=== PATIENT | male | born 1960 | race Caucasian/White ===

== ENCOUNTER 2019-01-25 23:46 | Emergency (ER) | payer SELFPAY ==
[2019-01-26 00:13] LABS: Hemoglobin 15.5 g/dL (14.0-18.0); Mean Corpuscular HGB CONC 33.1 g/dL (32.0-36.0); Mean Corpuscular Hemoglobin 29.5 pg (27.0-31.0); Mean Corpuscular Volume 89.1 fL (78.0-98.0); RBC Distribution Width 13.8 % (11.5-14.5); Red Blood Cell (RBC) Count 5.27 mill/uL (4.70-6.10); White Blood Cell (WBC) Count 8.2 thou/uL (4.8-10.8)
[2019-01-26 00:29] LABS: ALT (SGPT) 21 U/L (8-55); AST (SGOT) 22 U/L (5-34); Albumin 3.7 g/dL (3.5-5.0); Alkaline Phosphatase 154 U/L (40-150); Anion Gap 11 mmol/L (10-20); BUN (Urea Nitrogen) 11 mg/dL (8.4-25.7); Bilirubin, Total 0.6 mg/dL (0.2-1.2); Calc. Creatinine Clearance 0 mL/min (70-130); Calcium 9.3 mg/dL (7.8-10.44); Carbon Dioxide 29 mmol/L (22-29); Chloride 103 mmol/L (98-107); Estimated GFR-MDRD 66; Globulin 3.7 g/dL (2.4-3.5); Glucose 164 mg/dL (70-105); Potassium 4.2 mmol/L (3.5-5.1); Protein, Total 7.4 g/dL (6.0-8.3); Sodium 139 mmol/L (136-145)
[2019-01-26 00:30] LABS: #Eosinphils 0.2 thou/uL (0.0-0.7); #Lymphocytes 1.7 thou/uL (1.20-3.40); #Monocytes 0.7 thou/uL (0.11-0.59); #Neutrophils 5.7 thou/uL (1.40-6.50); %Basophils 0.3 % (0.0-1.0); %Eosinophils 2.4 % (0.0-10.0); %Lymphocytes 20.2 % (21.0-51.0); %Monocytes 8.1 % (0.0-10.0); Mean Platelet Volume 10.8 fL (7.4-10.4); Platelet Count 99 thou/uL (130-400)
--- NOTE | 2019-01-26 08:47 | RAD ---
FRONTAL VIEW CHEST: INDICATION: Pain. Hypertension. FINDINGS: There is no lobar consolidation, effusion, or pneumothorax. Cardiac silhouette is normal in size for the portable technique. IMPRESSION: No focal consolidation. POS: [facility]
== END 2019-01-26 01:20 | disposition home or self-care (01) ==
LOC: ERS 23:46
DX: I10 Essential (primary) hypertension (principal)
CPT/HCPCS: 36415; 71045; 80053; 84484; 85025; 93005

== ENCOUNTER 2019-07-04 11:46 | Emergency (ER) | payer SELFPAY ==
[2019-07-04 13:01] LABS: ALT (SGPT) 41 U/L (8-55); AST (SGOT) 45 U/L (5-34); Albumin 3.8 g/dL (3.5-5.0); Alkaline Phosphatase 83 U/L (40-110); Anion Gap 12 mmol/L (10-20); BUN (Urea Nitrogen) 15 mg/dL (8.4-25.7); Bilirubin, Total 2.7 mg/dL (0.2-1.2); Calc. Creatinine Clearance 0 mL/min (70-130); Calcium 9.1 mg/dL (7.8-10.44); Carbon Dioxide 30 mmol/L (22-29); Chloride 100 mmol/L (98-107); Estimated GFR-MDRD 56; Globulin 3.8 g/dL (2.4-3.5); Glucose 130 mg/dL (70-105); Potassium 3.5 mmol/L (3.5-5.1); Protein, Total 7.6 g/dL (6.0-8.3); Sodium 138 mmol/L (136-145)
[2019-07-04] MEDS ORDERED: Lorazepam 1 MG TAB ONE ×2 (13:15→23:22)
[2019-07-04 13:40] LABS: #Eosinphils 0.1 thou/uL (0.0-0.7); #Monocytes 0.6 thou/uL (0.11-0.59); #Neutrophils 4.6 thou/uL (1.40-6.50); %Basophils 0.7 % (0.0-1.0); %Eosinophils 2.3 % (0.0-10.0); %Lymphocytes 16.2 % (21.0-51.0); %Monocytes 9.1 % (0.0-10.0); %Neutrophils 71.7 % (42.0-75.0); Hemoglobin 14.1 g/dL (14.0-18.0); Mean Corpuscular HGB CONC 33.9 g/dL (32.0-36.0); Mean Corpuscular Hemoglobin 30.5 pg (27.0-31.0); Mean Corpuscular Volume 89.8 fL (78.0-98.0); Mean Platelet Volume 10.6 fL (7.4-10.4); Platelet Count 86 thou/uL (130-400); RBC Distribution Width 13.5 % (11.5-14.5); Red Blood Cell (RBC) Count 4.63 mill/uL (4.70-6.10); White Blood Cell (WBC) Count 6.4 thou/uL (4.8-10.8)
[2019-07-04 13:59] LABS: Acetaminophen Less than 6.0 mcg/mL (10.0-30.0); Alcohol Less than 10 mg/dL (Less than 10); CK (CPK) 304 U/L (30-200); Salicylate Less than 8.0 mg/dL (15.0-30.0)
[2019-07-04 15:59] LABS: Amphetamine Detected (NotDetected); Barbiturates Screen Not Detected (NotDetected); Benzodiazepine Screen Not Detected (NotDetected); Cocaine Metabolite Screen Not Detected (NotDetected); Medtox Control Line Valid? VALID (VALID); Medtox Reader # READER 4; Methadone Not Detected (NotDetected); Methamphetamine Detected (NotDetected); Opiate Screen Not Detected (NotDetected); Oxycodone Screen Not Detected (NotDetected); Phencyclidine (PCP) Not Detected (NotDetected); THC/Cannabinoid Screen Not Detected (NotDetected); Tricyclic Screen Not Detected (NotDetected)
[2019-07-05 04:52] LABS: #Eosinphils 0.2 thou/uL (0.0-0.7); #Monocytes 0.4 thou/uL (0.11-0.59); #Neutrophils 3.2 thou/uL (1.40-6.50); %Basophils 0.8 % (0.0-1.0); %Eosinophils 3.2 % (0.0-10.0); %Lymphocytes 21.2 % (21.0-51.0); %Monocytes 8.5 % (0.0-10.0); %Neutrophils 66.3 % (42.0-75.0); Hemoglobin 14.5 g/dL (14.0-18.0); Mean Corpuscular HGB CONC 33.6 g/dL (32.0-36.0); Mean Corpuscular Hemoglobin 30.4 pg (27.0-31.0); Mean Corpuscular Volume 90.5 fL (78.0-98.0); Platelet Count 82 thou/uL (130-400); RBC Distribution Width 13.5 % (11.5-14.5); Red Blood Cell (RBC) Count 4.76 mill/uL (4.70-6.10); White Blood Cell (WBC) Count 4.9 thou/uL (4.8-10.8)
[2019-07-05 04:58] LABS: Anion Gap 11 mmol/L (10-20); BUN (Urea Nitrogen) 12 mg/dL (8.4-25.7); Calc. Creatinine Clearance 0 mL/min (70-130); Calcium 8.7 mg/dL (7.8-10.44); Carbon Dioxide 26 mmol/L (22-29); Chloride 103 mmol/L (98-107); Estimated GFR-MDRD 68; Glucose 152 mg/dL (70-105); Potassium 3.7 mmol/L (3.5-5.1); Sodium 136 mmol/L (136-145)
[2019-07-05] MEDS ORDERED: Lorazepam 1 MG TAB ONE ×2 (07:49→14:53)
[2019-07-05] MEDS ORDERED: Ziprasidone 20 MG VIAL ONE (08:03)
[2019-07-05] MEDS ORDERED: Famotidine 20 MG TAB ONE (21:25)
[2019-07-06] MEDS ORDERED: Hydrochlorothiazide 25 MG TAB PO SCH (09:00)
[2019-07-07] MEDS ORDERED: Ziprasidone 20 MG VIAL IM SCH (08:00)
--- NOTE | 2019-07-12 13:56 | EKG ---
Test Reason : Blood Pressure : / mmHG Vent. Rate : 097 BPM Atrial Rate : 097 BPM P-R Int : 170 ms QRS Dur : 094 ms QT Int : 376 ms P-R-T Axes : 039 007 088 degrees QTc Int : 477 ms Normal sinus rhythm Prolonged QT Abnormal ECG Confirmed by LILIAM WHITTAKER DO ([id number]), website/blog editor RONALDO RIVERS ([id number]) on 07/12/2019 1:55:45 PM Referred By: Confirmed By:LILIAM WHITTAKER DO
== END 2019-07-07 10:53 | disposition home or self-care (01) ==
LOC: ERS 11:46
DX: F15.10 Other stimulant abuse, uncomplicated (principal); R45.851 Suicidal ideations; I10 Essential (primary) hypertension; Z79.899 Other long term (current) drug therapy
CPT/HCPCS: 36415; 80048; 80053; 80306; 80307; 82550; 84443; 85025; 93005; 96360; J3486

== ENCOUNTER 2019-07-25 02:22 | Inpatient (IN) | payer OTHER, SELFPAY ==
[2019-07-25] MEDS ORDERED: Morphine 4 MG/ML VIAL ONE (02:53)
[2019-07-25] MEDS ORDERED: Ondansetron PF 4 MG/2 ML Vial ONE (02:53)
[2019-07-25] MEDS ORDERED: hydrALAZINE 20 MG/ML VIAL SLOW IVP PRN (03:12)
[2019-07-25] MEDS ORDERED: HumaLOG 300 UNITS/3 ML VIAL SC PRN (03:12)
[2019-07-25] MEDS ORDERED: Ondansetron PF 4 MG/2 ML Vial IVP PRN (03:12)
[2019-07-25] MEDS ORDERED: Dextrose 50% Abboject 50 ML SYRINGE SLOW IVP PRN (03:12)
[2019-07-25] MEDS ORDERED: Dextrose 5% in Water 1,000 ML IV PRN (03:12)
[2019-07-25 03:13] LABS: #Eosinphils 0.1 thou/uL (0.0-0.7); #Monocytes 0.4 thou/uL (0.11-0.59); #Neutrophils 2.8 thou/uL (1.40-6.50); %Basophils 0.8 % (0.0-1.0); %Eosinophils 1.7 % (0.0-10.0); %Lymphocytes 23.6 % (21.0-51.0); %Monocytes 9.3 % (0.0-10.0); %Neutrophils 64.6 % (42.0-75.0); Hemoglobin 14.5 g/dL (14.0-18.0); Mean Corpuscular HGB CONC 34.3 g/dL (32.0-36.0); Mean Corpuscular Hemoglobin 30.5 pg (27.0-31.0); Mean Corpuscular Volume 89.1 fL (78.0-98.0); Mean Platelet Volume 10.8 fL (7.4-10.4); Platelet Count 73 thou/uL (130-400); RBC Distribution Width 13.4 % (11.5-14.5); Red Blood Cell (RBC) Count 4.75 mill/uL (4.70-6.10); White Blood Cell (WBC) Count 4.4 thou/uL (4.8-10.8)
[2019-07-25 03:14] LABS: INR-International Normal Ratio 1.1; Prothrombin Time 14.3 SEC (12.0-14.7)
[2019-07-25 03:33] LABS: ALT (SGPT) 29 U/L (8-55); AST (SGOT) 31 U/L (5-34); Albumin 3.5 g/dL (3.5-5.0); Alkaline Phosphatase 126 U/L (40-110); Anion Gap 12 mmol/L (10-20); BUN (Urea Nitrogen) 8 mg/dL (8.4-25.7); Bilirubin, Total 0.9 mg/dL (0.2-1.2); Calc. Creatinine Clearance 0 mL/min (70-130); Calcium 9.4 mg/dL (7.8-10.44); Carbon Dioxide 26 mmol/L (22-29); Chloride 102 mmol/L (98-107); Estimated GFR-MDRD 78; Globulin 3.6 g/dL (2.4-3.5); Glucose 219 mg/dL (70-105); Potassium 3.8 mmol/L (3.5-5.1); Protein, Total 7.1 g/dL (6.0-8.3); Sodium 136 mmol/L (136-145)
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
[2019-07-25] MEDS: Acetaminophen 1,000 MG in Premix Bag 1 BAG IVPB SCH ×2 (04:32→12:40)
[2019-07-25] MEDS: Ketorolac Tromethamine 30 MG/ML VIAL IVP SCH ×3 (04:34→18:23)
[2019-07-25] MEDS: Sodium Chloride 0.9% 1,000 ML IV SCH ×3 (04:34→21:43)
[2019-07-25 04:50] VITALS: BMI 30.8
[2019-07-25] MEDS ORDERED: Morphine 4 MG/ML VIAL SLOW IVP PRN (06:14)
[2019-07-25] MEDS ORDERED: Methocarbamol 1 GM in Sodium Chloride 0.9% 100 ML IVPB PRN (07:13)
[2019-07-25] MEDS ORDERED: CEFAZOLIN 2 GM in Premix Bag 1 BAG IVPB SCH (07:30)
[2019-07-25] MEDS: Polyethylene Glycol 3350 17 GM Packet PO SCH (07:39)
[2019-07-25] MEDS: Senokot S 8.6-50 MG TAB PO SCH ×2 (07:40→19:48)
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
[2019-07-25] MEDS: Famotidine/PF 20 mg/2ml Vial SLOW IVP SCH ×2 (07:45→19:49)
--- NOTE | 2019-07-25 07:59 | RAD ---
RIGHT HIP 2 VIEWS: HISTORY: Trauma. COMPARISON: None. FINDINGS: There is a mid cervical right femoral neck fracture with mild impaction and valgus angulation. Right obturator ring is intact. IMPRESSION: Mildly impacted valgus angulated right femoral neck fracture. POS: CET
--- NOTE | 2019-07-25 08:00 | RAD ---
RIGHT FEMUR 2 VIEWS: HISTORY: Trauma. COMPARISON: None. FINDINGS: There is an impacted valgus angulated right femoral neck fracture mid cervical. The remainder of the femur is intact. IMPRESSION: Valgus angulated impacted right mid cervical femoral neck fracture. POS: CET
[2019-07-25] MEDS ORDERED: Dexamethasone 4 mg/ml Vial ONE (10:33)
[2019-07-25] MEDS ORDERED: Fentanyl 100 MCG/2 ML VIAL ONE ×2 (10:33→11:12)
[2019-07-25] MEDS ORDERED: Midazolam HCl 2 mg/2 ml Vial ONE (10:33)
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
[2019-07-25] MEDS ORDERED: Promethazine HCl 25 MG/ML VIAL SLOW IVP PRN (12:41)
[2019-07-25] MEDS ORDERED: Promethazine HCl 25 MG/ML VIAL IM PRN (12:41)
[2019-07-25] MEDS ORDERED: Ondansetron HCl/PF 4 MG/2 ML Vial IVP PRN (12:41)
[2019-07-25] MEDS ORDERED: Bupivacaine HCl 0.5%/Epinephrine 1:200,000/PF 30 ml Vial ONE (12:53)
[2019-07-25] MEDS ORDERED: PROPOFOL 200 MG/20 ML VIAL ONE (12:53)
[2019-07-25] MEDS ORDERED: Ketorolac Tromethamine 30 MG/ML VIAL ONE (12:53)
[2019-07-25] MEDS ORDERED: PHENYLEPHRINE-NS 100 MCG/ML 10 ML SYRINGE ONE (12:53)
[2019-07-25] MEDS ORDERED: Lidocaine 1% PF 5 ML VIAL ONE (12:53)
[2019-07-25] MEDS ORDERED: traMADol HCl 50 MG TAB ONE (13:07)
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
[2019-07-25] MEDS ORDERED: Cyclobenzaprine 10 MG TAB PO PRN (14:35)
--- NOTE | 2019-07-25 15:01 | RAD ---
Intraoperative imaging of the right hip: 07/25/2019 COMPARISON: 07/25/2019 HISTORY: Fracture status post ORIF FINDINGS: 3 intraoperative images of the right hip are provided. The previously noted right femoral n emilia fracture has been treated with 3 screws. There is anatomic alignment at the operative site. IMPRESSION: ORIF as above.
[2019-07-25] MEDS ORDERED: traMADol HCl 50 MG TAB PO PRN (18:00)
[2019-07-25] MEDS: traMADol HCl 50 MG TAB PO SCH ×2 (18:24→22:59)
[2019-07-25] MEDS ORDERED: Naproxen 500 MG TAB PO SCH (21:00)
[2019-07-25] MEDS ORDERED: FLU VACC QS2019-20(6MOS UP)/PF 60 MCG/0.5 ML SYRINGE IM ONE (21:00)
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
[2019-07-26 04:54] LABS: #Monocytes 0.6 thou/uL (0.11-0.59); #Neutrophils 8.7 thou/uL (1.40-6.50); %Basophils 0.1 % (0.0-1.0); %Eosinophils 0.3 % (0.0-10.0); %Lymphocytes 9.5 % (21.0-51.0); %Neutrophils 84.1 % (42.0-75.0); Hemoglobin 14.1 g/dL (14.0-18.0); Mean Corpuscular HGB CONC 33.5 g/dL (32.0-36.0); Mean Corpuscular Hemoglobin 29.7 pg (27.0-31.0); Mean Corpuscular Volume 88.7 fL (78.0-98.0); Mean Platelet Volume 11.3 fL (7.4-10.4); Platelet Count 88 thou/uL (130-400); RBC Distribution Width 13.2 % (11.5-14.5); Red Blood Cell (RBC) Count 4.75 mill/uL (4.70-6.10); White Blood Cell (WBC) Count 10.3 thou/uL (4.8-10.8)
[2019-07-26] MEDS: Acetaminophen 500 MG TAB PO SCH ×2 (05:26→11:53)
[2019-07-26] MEDS: traMADol HCl 50 MG TAB PO SCH ×2 (05:26→11:53)
[2019-07-26] MEDS: Sodium Chloride 0.9% 1,000 ML IV SCH ×2 (05:28→15:20)
[2019-07-26] MEDS ORDERED: Naproxen 500 MG TAB PO SCH (08:00)
[2019-07-26] MEDS: Famotidine/PF 20 mg/2ml Vial SLOW IVP SCH (08:04)
[2019-07-26] MEDS: Senokot S 8.6-50 MG TAB PO SCH (08:04)
[2019-07-26] MEDS: Polyethylene Glycol 3350 17 GM Packet PO SCH (08:08)
[2019-07-26] MEDS ORDERED: Enoxaparin Sodium 30 MG/0.3 ML SYRINGE SC SCH (09:00)
[2019-07-26] MEDS ORDERED: Lisinopril/Hydrochlorothiazide 20 mg/12.5 mg Tablet PO SCH (09:00)
[2019-07-26 11:20] VITALS: BP 134/65; TEMP 98.1
[2019-07-26] MEDS ORDERED: Ibuprofen 600 MG TAB PO SCH (12:00)
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
== END 2019-07-26 15:15 | disposition home or self-care (01) | DRG 482 ==
LOC: ERS 02:22 → SURG A 03:12 → OBSVTOIN 03:12
PROVIDERS: ADMIT Surgery; ATTEND Surgery
PROC: 0QS634Z Reposition Right Upper Femur with Internal Fixation Device, Percutaneous Approach (ICD-10-PCS; principal; 2019-07-25)
DX: S72.001A Fracture of unspecified part of neck of right femur, initial encounter for closed fracture (principal); I10 Essential (primary) hypertension; F19.10 Other psychoactive substance abuse, uncomplicated; D69.6 Thrombocytopenia, unspecified; F17.210 Nicotine dependence, cigarettes, uncomplicated; F15.10 Other stimulant abuse, uncomplicated; V03.99XA Pedestrian with other conveyance injured in collision with car, pick-up truck or van, unspecified whether traffic or nontraffic accident, initial encounter; Z90.49 Acquired absence of other specified parts of digestive tract
CPT/HCPCS: 36415; 36416; 76000; 80053; 85025; 85610; 85730; 96374; 96375; C1713; C1769; G0390; J0131; J0670; J0690; J1100; J1885; J2001; J2250; J2270; J2405; J2704; J2800; J3010; J3490; S0028

== ENCOUNTER 2019-08-03 04:35 | Emergency (ER) | payer SELFPAY ==
[2019-08-03] MEDS ORDERED: HYDROcodone/Acetaminophen 10/325 mg Tablet ONE (05:05)
--- NOTE | 2019-08-03 09:08 | RAD ---
RIGHT KNEE 4 VIEWS: Date: 08/03/19 HISTORY: Right knee pain. FINDINGS/IMPRESSION: Degenerative changes are present. No fracture, dislocation, or bony destruction identified. POS: MARILYN
--- NOTE | 2019-08-03 12:10 | ULT ---
PRELIMINARY REPORT/[facility]/EMERGENCY AFTER HOURS PROCEDURE: PROCEDURE INFORMATION: Exam: US Duplex Right Lower Extremity Veins, Limited Exam date and time: 08/03/2019 5:44 AM Clinical history: 58 years old, male; Other: RT leg pain S/P RT femur surgery 10 days ago; Prior surg fauzia; Surgery date: <1 month TECHNIQUE: Imaging protocol: Real-time Duplex ultrasound of the Right Lower Extremity with 2-D maldonado scale, color Doppler flow and spectral waveform analysis with image documentation. Limited exam was focused on th e right lower extremity veins. COMPARISON: No relevant prior studies available. FINDINGS: Right deep veins: Unremarkable. The common femoral, femoral, proximal profunda femoral and popliteal veins are patent without thrombus. Normal Doppler waveforms. Normal compressibility and/or augmentati on response. Right superficial veins: Unremarkable. Saphenofemoral junction is patent without thrombus. Soft tissues: Unremarkable. IMPRESSION: No acute findings. No evidence of deep vein thrombosis. Thank you for allowing us to participate in the care of your patient. Dictated and Authenticated by: Ashanti Walden MD 08/03/2019 6:11 AM Central Time ([place] & [place]) FINAL REPORT VENOUS DOPPLER ULTRASOUND OF THE RIGHT LOWER EXTREMITY: IMPRESSION: I agree with the preliminary report given by Elisabeth. POS: [facility]
== END 2019-08-03 08:42 | disposition home or self-care (01) ==
LOC: ERS 04:35
DX: G89.18 Other acute postprocedural pain (principal); M79.604 Pain in right leg; I10 Essential (primary) hypertension; F17.210 Nicotine dependence, cigarettes, uncomplicated; Z79.899 Other long term (current) drug therapy; Z79.891 Long term (current) use of opiate analgesic

== ENCOUNTER 2020-09-28 07:42 | Observation (INO) | payer OTHER, SELFPAY ==
[2020-09-28 08:16] LABS: #Eosinphils 0.1 thou/uL (0.0-0.7); #Lymphocytes 1.3 thou/uL (1.20-3.40); #Monocytes 0.4 thou/uL (0.11-0.59); #Neutrophils 4.1 thou/uL (1.40-6.50); %Basophils 0.6 % (0.0-1.0); %Eosinophils 1.7 % (0.0-10.0); %Lymphocytes 21.8 % (21.0-51.0); %Monocytes 6.1 % (0.0-10.0); %Neutrophils 69.7 % (42.0-75.0); Hemoglobin 15.6 g/dL (14.0-18.0); Mean Corpuscular HGB CONC 32.7 g/dL (32.0-36.0); Mean Corpuscular Hemoglobin 28.7 pg (27.0-31.0); Mean Corpuscular Volume 87.7 fL (78.0-98.0); Mean Platelet Volume 11.9 fL (7.4-10.4); Platelet Count 89 thou/uL (130-400); RBC Distribution Width 15.3 % (11.5-14.5); Red Blood Cell (RBC) Count 5.43 mill/uL (4.70-6.10); White Blood Cell (WBC) Count 5.9 thou/uL (4.8-10.8)
[2020-09-28 08:36] LABS: ALT (SGPT) 19 U/L (8-55); AST (SGOT) 22 U/L (5-34); Albumin 3.9 g/dL (3.5-5.0); Alkaline Phosphatase 106 U/L (40-110); Anion Gap 13 mmol/L (10-20); BUN (Urea Nitrogen) 14 mg/dL (8.4-25.7); Bilirubin, Total 0.6 mg/dL (0.2-1.2); Calc. Creatinine Clearance 0 mL/min (70-130); Calcium 9.3 mg/dL (7.8-10.44); Carbon Dioxide 30 mmol/L (22-29); Chloride 101 mmol/L (98-107); Globulin 4.1 g/dL (2.4-3.5); Glucose 254 mg/dL (70-105); Potassium 4.5 mmol/L (3.5-5.1); Sodium 139 mmol/L (136-145)
--- NOTE | 2020-09-28 09:03 | RAD ---
PORTABLE CHEST: Date: 09/28/2020 COMPARISON: 01/26/2019 exam. HISTORY: Intermittent chest pain. FINDINGS: Heart size and mediastinum are within normal limits. The lungs are clear of infiltrates. No bony find ings. IMPRESSION: No active intrathoracic disease. POS: OFF
[2020-09-28] MEDS ORDERED: Aspirin 325 MG TAB ONE (09:20)
[2020-09-28] MEDS ORDERED: Nitroglycerin 2% Ointment 1 INCH/1 GM Packet ONE (09:20)
[2020-09-28] MEDS ORDERED: Iopamidol 370 76% 100 ML VIAL ONE (10:53)
[2020-09-28] MEDS ORDERED: Acetaminophen 325 MG TAB PO PRN (11:17)
[2020-09-28] MEDS ORDERED: Zolpidem Tartrate 5 MG TAB PO PRN (11:17)
[2020-09-28] MEDS ORDERED: Bisacodyl 10 MG SUPP PR PRN (11:17)
[2020-09-28] MEDS ORDERED: HYDROcodone/Acetaminophen 5/325 mg Tablet PO PRN (11:17)
[2020-09-28] MEDS ORDERED: Senokot S 8.6-50 MG TAB PO PRN (11:17)
[2020-09-28] MEDS ORDERED: Ondansetron PF 4 MG/2 ML Vial IVP PRN (11:17)
[2020-09-28] MEDS ORDERED: Guaifenesin DM 100-10/5 ML UDCUP PO PRN (11:17)
[2020-09-28] MEDS ORDERED: Ondansetron ODT 4 MG TAB PO PRN (11:17)
[2020-09-28] MEDS ORDERED: Calcium Carbonate 500 MG ChewTAB PO PRN (11:17)
[2020-09-28] MEDS ORDERED: Loperamide HCl 2 MG CAP PO PRN (11:17)
[2020-09-28] MEDS ORDERED: Nitroglycerin 0.4 MG TAB (25 Tab Bottle) SL PRN ×2 (11:17→15:26)
--- NOTE | 2020-09-28 11:19 | PDOC.HHP ---
Hospitalist HPI - History of Present Illness Chest pain History of Present Illness: Patient came to emergency room for evaluation of chest pain, he has substernal chest pain on and off for about 1 week, patient reports that recently he went to [facility] emergency room where he had CT scan of heart with a calcium score which was elevated to 14, patient was advised to see cardiology, patient made appointment with the cardiology and he had echocardiography, patient was told that he may have blockage, he will need cardiac catheterization, but when he went to see his cardiology they decided to do cardiac cath within a month, patient was having recurrent chest pain even after that and that is why he decided to come to emergency room., This morning he was having similar substernal chest pain around 5 AM, which was associated with pressure feeling, no associated nausea or vomiting, denies any COVID-19 exposure or concern, no shortness of breath, no dizziness or palpitation, patient also reports that routinely he had testing for his occupation and his blood pressure was also very high, ED Course: Patient is given aspirin and nitro patch VITAL SIGNS SunSep 28, 2020 07:44 POONAM Ricardo Dannette BP: 196/107, Pulse: 71, Resp: 17, Temp: 97.7 (Oral), Pain: 2, O2 sat: 99 on (Room Air), Time: 09/28/2020 07:44. VITAL SIGNS SunSep 28, 2020 07:53 POONAM Rios Elizabeth BP: 154/99, MAP: 117, Pulse: 68, Resp: 20, Pain: 2, O2 sat: 98 on (Room Air), Time: 09/28/2020 07:53. VITAL SIGNS SunSep 28, 2020 09:00 POONAM Rios Elizabeth BP: 152/91, MAP: 111, Pulse: 67, Resp: 19, Pain: 1, O2 sat: 98 on (Room Air), Time: 09/28/2020 09:00. VITAL SIGNS SunSep 28, 2020 10:00 POONAM Riso Elizabeth BP: 132/80, MAP: 97, Pulse: 63, Resp: 18, Pain: 1, O2 sat: 97 on (Room Air), Time: 09/28/2020 10:00. Hospitalist ROS - Review of Systems Constitutional: denies: fever, chills, sweats, weakness, malaise, other Eyes: denies: pain, vision change, conjunctivae inflammation, eyelid inflammation, redness, other Respiratory: denies: cough, dry, shortness of breath, hemoptysis, SOB with excertion, pleuritic pain, sputum, wheezing, other Cardiovascular: reports: chest pain. denies: palpitations, orthopnea, paroxysmal noc. dyspnea, edema, light headedness, other Gastrointestinal: denies: nausea, vomiting, abdominal pain, diarrhea, constipation, melena, hematochezia, other Genitourinary: denies: dysuria, frequency, incontinence, hematuria, retention, other Musculoskeletal: denies: neck pain, shoulder pain, arm pain, back pain, hand pain, leg pain, foot pain, other Skin: denies: rash, lesions, yvette, bruising, other - Medication Medications: Home medication Medication Instructions Recorded Confirmed Type Naproxen 500 mg PO PRN PRN 07/25/19 07/25/19 History Omeprazole Magnesium [Prilosec] 2.5 mg PO MWF 07/25/19 07/25/19 History traMADol HCl [Tramadol HCl] 50 mg PO Q6HR 07/26/19 07/26/19 History Hydrochlorothiazide 12.5 mg PO DAILY 07/28/19 07/28/19 History Lisinopril 20 mg PO DAILY 07/28/19 07/28/19 History Metoprolol Succinate 100 mg PO BID 07/28/19 07/28/19 History Allergy Allergies No Known Allergies Allergy (Verified 07/25/19 04:45) FROM ESD RECORD Resuscitation Status - Order Detail: 09/28/20 11:13 Resuscitation Status Routine Resuscitation Status: FULL: Full Resuscitation Hospitalist History - Past Medical History Other Medical History: Hypertension Tobacco abuse disorder - Past Surgical History Other Surgical History: Right femur surgery Appendicectomy Cholecystectomy Right hip replacement - Family History Other Family History: No strong family history of premature coronary artery disease stroke or cancer - Social History Other Social History: Patient has history of smoking, he recently changed to nicotine patch, he denies any alcohol abuse here, he denies any illicit drug abuse - Exam General Appearance: NAD, awake alert Eye: PERRL, anicteric sclera ENT: normocephalic atraumatic, no oropharyngeal lesions Neck: supple, symmetric, no JVD, no thyromegaly Heart: RRR, no murmur, no gallops, no rubs, normal peripheral pulses Respiratory: CTAB, no wheezes, no rales, no ronchi Gastrointestinal: soft, non-tender, non-distended, normal bowel sounds Extremities: no cyanosis, no clubbing, no edema Skin: normal turgor, no lesions Neurological: cranial nerve grossly intact, normal sensation to touch, no focal deficits Musculoskeletal: normal tone, normal strength, no muscle wasting Psychiatric: normal affect, normal behavior, A&O x 3 Hospitalist Results - Labs Result Diagrams: 09/28/20 08:05 09/28/20 08:05 Lab results: WBC 5.9 thou/uL (4.8-10.8) 09/28/20 08:05 Hgb 15.6 g/dL (14.0-18.0) 09/28/20 08:05 Hct 47.6 % (42.0-52.0) 09/28/20 08:05 MCV 87.7 fL (78.0-98.0) 09/28/20 08:05 Plt Count 89 thou/uL (130-400) L 09/28/20 08:05 Neutrophils % 69.7 % (42.0-75.0) 09/28/20 08:05 Sodium 139 mmol/L (136-145) 09/28/20 08:05 Potassium 4.5 mmol/L (3.5-5.1) 09/28/20 08:05 Chloride 101 mmol/L (98-107) 09/28/20 08:05 Carbon Dioxide 30 mmol/L (22-29) H 09/28/20 08:05 BUN 14 mg/dL (8.4-25.7) 09/28/20 08:05 Creatinine 1.32 mg/dL (0.7-1.3) H 09/28/20 08:05 Glucose 254 mg/dL (70-105) H 09/28/20 08:05 Calcium 9.3 mg/dL (7.8-10.44) 09/28/20 08:05 Total Bilirubin 0.6 mg/dL (0.2-1.2) 09/28/20 08:05 AST 22 U/L (5-34) 09/28/20 08:05 ALT 19 U/L (8-55) 09/28/20 08:05 Alkaline Phosphatase 106 U/L (40-110) 09/28/20 08:05 Troponin I Less than 0.010 ng/mL (< 0.028) 09/28/20 08:05 Serum Total Protein 8.0 g/dL (6.0-8.3) 09/28/20 08:05 Albumin 3.9 g/dL (3.5-5.0) 09/28/20 08:05 - EKG Interpretation EK lead EKG shows normal sinus rhythm, Rate (beats per minute): 67, with no ectopics, Conduction normal, ST segments normal, T waves normal, [place] normal - Radiology Interpretation Chest x-ray Status: image reviewed by me Additional Comment: IMPRESSION: No active intrathoracic disease. Hospitalist H&P A/P - Problem (1) Chest pain Code(s): R07.9 - CHEST PAIN, UNSPECIFIED Status: Acute Assessment and Plan: Chest pain consistent with angina, his heart score is 5, he had CT heart calcium score is 14, his history is also concerning, he has several risk factor for coronary artery disease, will consult cardiology for evaluation, will obtain echocardiography to assess EF and other structural abnormality, meanwhile we will continue with aspirin 325 mg p.o. daily, Nitropatch every 8 hourly, will check lipid profile, will monitor on telemetry floor, his home medication will be reconciled, will add Lipitor 40 mg p.o. nightly (2) Hypertension Code(s): I10 - ESSENTIAL (PRIMARY) HYPERTENSION Status: Chronic Qualifiers: Hypertension type: essential hypertension Qualified Code(s): I10 - Essential (primary) hypertension Assessment and Plan: Resume his Toprol-XL and Prinzide (3) Tobacco abuse disorder Code(s): Z72.0 - TOBACCO USE Status: Chronic Assessment and Plan: Counseling provided to avoid smoking and nicotine product - Plan Plan: Observation to telemetry floor Serial cardiac enzymes x3 Cardiology consultation Echocardiography Continue aspirin, add Lipitor, continue Toprol-XL and Prinzide Adjust his blood pressure medication to better control his blood pressure Counseling given to avoid smoking, healthy lifestyle measures discussed with the patient Check lipid profile tomorrow morning, Continue Nitropatch DVT prophylaxis Lovenox 40 mg subcu daily GI prophylaxis Pepcid 20 mg twice daily CODE STATUS patient is full code Disposition plan within 24 hours.
[2020-09-28 11:55] LABS: Troponin I Less than 0.010 ng/mL (< 0.028)
[2020-09-28] MEDS ORDERED: Sodium Chloride 0.9% 1,000 ML IV SCH ×2 (12:45→15:30)
[2020-09-28] MEDS ORDERED: Heparin 10,000 UNITS/ 10 ML VIAL ONE (13:54)
[2020-09-28 14:48] VITALS: BMI 28.3
[2020-09-28] MEDS: Nitroglycerin 2% Ointment 1 INCH/1 GM Packet TOP SCH ×2 (15:00→21:01)
[2020-09-28] MEDS ORDERED: Sodium Chloride 0.9% 200 ML IV PRN (15:26)
[2020-09-28] MEDS ORDERED: Acetaminophen/Codeine 30-300mg Tablet PO PRN ×2 (15:26)
[2020-09-28 16:26] LABS: Troponin I Less than 0.010 ng/mL (< 0.028)
--- NOTE | 2020-09-28 17:08 | CON ---
DATE OF CONSULTATION: 09/28/2020 REASON FOR CONSULTATION: Evaluate the patient for coronary artery bypass grafting. HISTORY OF PRESENT ILLNESS: Mr. Lynne is a 60-year-old gentleman who was seen recently at the [facility] Department for some chest pain. He has a positive family history and had a CT calcium score performed, which was high. Recommendation was made for cardiology referral and he was referred to billing clerk in [place], who could not see him until late October. He was dismissed home and began having chest pain today. He called back to the [facility] Emergency Department and they told him just to come to the emergency room at [place]. He was seen by Dr. Fang and taken for urgent cardiac catheterization at the time of his presentation. Cardiac catheterization is showing a mid LAD, mid OM, and mid RCA stenosis. I have been asked to see him and discuss coronary artery bypass grafting. PAST MEDICAL HISTORY: 1. Thrombocytopenia. 2. Coronary artery disease. 3. Hypertension. ALLERGIES: NONE. CURRENT MEDICATIONS: 1. Prilosec. 2. Tramadol 50 mg q.6 p.r.n. 3. Hydrochlorothiazide 12.5 mg daily. 4. Lisinopril 20 mg daily. 5. Metoprolol 100 mg b.i.d. SOCIAL HISTORY: He continues to smoke cigarettes. He is and his has bipolar disorder, which he says she does not treat and causes him a great deal of stress at home. PAST SURGICAL HISTORY: 1. Right femur ORIF. 2. Appendectomy. 3. Cholecystectomy. 4. Right hip replacement. REVIEW OF SYSTEMS: A 10-point review of systems is performed and is negative except as above. PHYSICAL EXAMINATION: GENERAL: This is a well-developed, well-nourished male, resting comfortably in bed. He is extremely anxious. VITAL SIGNS: Height is 6 feet 4 inches, weight is 232 pounds, temperature is 98.4, pulse is 67 and regular, and blood pressure is 147/80. HEENT: Sclerae nonicteric. Pupils are equal and round bilaterally. NECK: Supple without adenopathy. He has no carotid bruits. CHEST: Clear to auscultation and percussion bilaterally. HEART: Rhythm is regular without murmur. ABDOMEN: Soft and nontender. EXTREMITIES: There is minimal edema bilaterally. VASCULAR: There is palpable carotid, radial, femoral, and dorsalis pedis pulses bilaterally. VENOUS: There are no venous varicosities or venous stasis changes. LABORATORY DATA: Of note, hemoglobin is 15.6 and platelet count is 89,000. Creatinine is 1.3 and potassium is 4.5. ASSESSMENT AND PLAN: This is a pleasant 60-year-old gentleman with severe 3-vessel disease. I have discussed the patient in detail with Dr. Fang who states that all 3 of his vessels are stentable, but due to his thrombocytopenia, he is reluctant to place drug-eluting stents due to the necessity for him to be on Plavix. I have discussed coronary artery bypass grafting with him. He is truly anxiety ridden and cannot make a decision at this point what he wants to do. He is asking if he can go home and come back in another time, which I am going to leave in Dr. Fang's court. If he decides to go home and wishes to have surgery in the future, I am more than willing to discuss this with him then. Job ID: [id number]
[2020-09-28] MEDS: Famotidine 20 MG TAB PO SCH (21:01)
[2020-09-28 22:09] LABS: SARS-CoV-2 MS2 Positive; SARS-CoV-2 N Gene Negative; SARS-CoV-2 S Gene Negative; SARS-CoV-2 by NAA Not Detected (NotDetected); SARS-CoV-2 orf1ab Negative
[2020-09-29] MEDS: Nitroglycerin 2% Ointment 1 INCH/1 GM Packet TOP SCH (06:04)
--- NOTE | 2020-09-29 06:29 | CON ---
DATE OF CONSULTATION: 09/28/2020 REASON FOR CONSULTATION: Chest pain. PRIMARY MAINTENANCE ENGINEER: None. HISTORY OF PRESENT ILLNESS: Mr. Lynne is a 60-year-old gentleman who recently was seen and evaluated at the [facility] Emergency Room. He was evaluated for chest pain. He was found to have a calcium score of 1400. It was recommended that he followup with a switch adjuster. He was seen and evaluated in [place]. There is where he was referred. It was recommended that he proceed with coronary angiography. In the interim, he states he has had intermittent chest pain, lasting for several minutes. It is not constant. It comes and goes. He recently stopped all tobacco products one week ago based on his recent intermittent chest pain. He now presents to the emergency room with similar findings. PAST MEDICAL HISTORY: Acid reflux, hypertension. ALLERGIES: NONE. SOCIAL HISTORY: Positive tobacco use. SURGICAL HISTORY: Femur surgery, appendectomy, cholecystectomy, and hip replacement. REVIEW OF SYSTEMS: A 10-point review of systems is reviewed and is as above, otherwise negative. HOME MEDICATIONS: Include: 1. Naproxen. 2. Omeprazole. 3. Tramadol. 4. Hydrochlorothiazide. 5. Lisinopril. 6. Metoprolol. PHYSICAL EXAMINATION: VITAL SIGNS: Blood pressure 131/70 pulse 80, respirations 20. GENERAL: Patient is a pleasant male who is in no acute distress. The patient appears their stated age. NEUROLOGIC: The patient is alert and oriented x3 with no focal neurologic deficits. HEENT: Sclerae without icterus. Mouth has moist mucous membranes with normal pallor. NECK: No JVD. Carotid upstroke brisk. No bruits bilaterally. LUNGS: Clear to auscultation with unlabored respirations. BACK: No scoliosis or kyphosis. CARDIAC: Regular rate and rhythm with normal S1 and S2. No S3 or S4 noted. No significant rubs, murmurs, thrills, or gallops noted throughout the precordium. PMI is not displaced. There is no parasternal heave. ABDOMEN: Soft, nontender, nondistended. No peritoneal signs present. No hepatosplenomegaly. No abnormal striae. EXTREMITIES: 2+ femoral and 2+ dorsalis pedis pulses. No cyanosis, clubbing, or edema. SKIN: No gross abnormalities. PERTINENT LABORATORY DATA: Hemoglobin 15.6. Creatinine 1.32 with a GFR of 56. Glucose 254. IMPRESSION: 1. Unstable angina. 2. Coronary artery disease. 3. Likely diabetes mellitus. PLAN: Mr. Lynne states he has not eaten since yesterday. I am concerned about the elevated glucose. I am also concerned about symptoms suggesting unstable angina. His troponin is negative which is reassuring, but based on his very high calcium score (I reviewed his CT scan) concerned about underlying coronary artery disease, and I discussed procedure in full detail with Mr. Lynne. The risks include, but are not limited to the following: , stroke, [place], need for emergency surgery, loss of limb, bleeding, and infection, as well as a reaction to the dye causing kidney failure and needing long-term dialysis. I also discussed the risks of PCI to include all of the above including coronary dissection and perforation in addition to acute stent thrombosis and restenosis. All questions about the procedure were answered. Given the above, the patient agreed to proceed with coronary angiography and possible PCI. All questions were answered. Given the above, the patient agreed to proceed with the above procedure. Also discussed drug coated versus nondrug coated stent placement. There were no contraindications to proceed if needed. Further recommendations will be pending the above. Job ID: [id number]
[2020-09-29 07:32] VITALS: BP 147/91; TEMP 97.4
[2020-09-29] MEDS ORDERED: Dextrose 50% Abboject 50 ML SYRINGE SLOW IVP PRN (08:16)
[2020-09-29] MEDS ORDERED: Dextrose 5% in Water 1,000 ML IV PRN (08:16)
[2020-09-29] MEDS ORDERED: Insulin Regular 300 UNITS/3 ML VIAL SC PRN ×2 (08:16)
[2020-09-29] MEDS ORDERED: Aspirin 325 mg Enteric Coated Tablet PO SCH (09:00)
[2020-09-29] MEDS ORDERED: Glimepiride 1 MG TAB PO SCH (09:00)
[2020-09-29] MEDS ORDERED: Lisinopril/Hydrochlorothiazide 20 mg/12.5 mg Tablet PO SCH (09:00)
[2020-09-29] MEDS ORDERED: Enoxaparin Sodium 40 MG/0.4 ML SYRINGE SC SCH (09:00)
[2020-09-29] MEDS: Famotidine 20 MG TAB PO SCH (09:38)
--- NOTE | 2020-09-29 21:11 | PDOC.DS.DS ---
Provider - Provider Date of Admission: 09/28/20 10:20 Date of Discharge: 09/29/20 Admitting Provider: Sonia Nguyen MD Consultations: Cardiology, Other (Cardiovascular) Primary Care Physician: NO PCP PROVIDER Course - Hospital Course Hospital Course: Patient is a 60-year-old male with hypertension, tobacco dependence, chronic thrombocytopenia and diabetes mellitus type 2 presented to the emergency room with chest discomfort on 09/28. The chest discomfort was substernal on and off for 1 week. He was found to have elevated calcium score at an outside emergency room. Please refer to the history and physical for further details. The patient was admitted to the hospital with a diagnosis of chest discomfort consistent with unstable angina. He was evaluated by cardiology. He underwent cardiac catheterization that showed 90% stenosis in the distal LAD, 60% stenosis in the mid circumflex and 70% stenosis in the proximal RCA. He was evaluated by cardiovascular for possible coronary artery bypass grafting due to chronic thrombocytopenia. Patient has declined coronary artery bypass grafting. He will follow up with cardiology as outpatient at a different facility. He was advised to continue aspirin. Statins were added. Final diagnosis: Chest discomfort consistent with unstable angina Three-vessel coronary artery disease Hypertension Diabetes mellitus type 2 Tobacco dependence Chronic thrombocytopenia CKD stage III Follow-up basic metabolic profile after 1 week is recommended primary care physician advised to follow Resuscitation Status: 09/28/20 11:13 Resuscitation Status Routine Resuscitation Status: FULL: Full Resuscitation - Labs Lab Results: 09/28/20 08:05 09/28/20 08:05 Abnormal Lab Results - Last 48 hrs 09/28/20 08:05: Carbon Dioxide 30 H, Creatinine 1.32 H, Globulin 4.1 H, Albumin/Globulin Ratio 1.0 L 09/28/20 08:05: RDW 15.3 H, Plt Count 89 L, MPV 11.9 H - Physical Exam Vitals: Weight Weight 232 lb Physical Exam: The patient was seen and examined on the day of discharge. Plan - Discharge Medications Prescriptions: Atorvastatin Calcium [Lipitor] 40 mg PO HS #30 tab Home Medications: Medication Instructions Recorded Confirmed Type Metoprolol Succinate 100 mg PO BID 07/28/19 09/28/20 History Amlodipine [Norvasc] 10 mg PO DAILY PRN 09/28/20 09/28/20 History Glimepiride 1 mg PO DAILY 09/28/20 09/28/20 History Nitroglycerin 0.3 mg SL PRN PRN 09/28/20 09/28/20 History Olmesartan/Hydrochlorothiazide 1 tab PO DAILY 09/28/20 09/28/20 History [Olmesartan-Hctz 40-25 mg Tab] metFORMIN HCl [Metformin HCl] 1,000 mg PO BID-WM 09/28/20 09/28/20 History Atorvastatin Calcium [Lipitor] 40 mg PO HS #30 tab 09/29/20 Rx Allergies: No Known Allergies Allergy (Verified 09/28/20 14:41) FROM ESD RECORD - Follow up Plan Referrals: Renato Fang MD [Active] - 2-3 Weeks Jazmyn Diaz MD [Active] - 3 Days (Please call office to schedule an appointment.) Disposition: HOME Quality - Care Measures CORE MEASURES:: N/A
== END 2020-09-29 09:45 | disposition home or self-care (01) ==
LOC: ERS 07:42 → ERHOLD 10:20 → PACU-TCU 13:19 → 2NO 14:13
PROVIDERS: ADMIT Internal Medicine; ATTEND Internal Medicine
PROC: 4A023N7 Measurement of Cardiac Sampling and Pressure, Left Heart, Percutaneous Approach (ICD-10-PCS; principal; 2020-09-28)
PROC: B2111ZZ Fluoroscopy of Multiple Coronary Arteries using Low Osmolar Contrast (ICD-10-PCS; 2020-09-28)
DX: R07.89 Other chest pain (principal); I25.10 Atherosclerotic heart disease of native coronary artery without angina pectoris; I12.9 Hypertensive chronic kidney disease with stage 1 through stage 4 chronic kidney disease, or unspecified chronic kidney disease; E11.22 Type 2 diabetes mellitus with diabetic chronic kidney disease; N18.30 Chronic kidney disease, stage 3 unspecified; D69.6 Thrombocytopenia, unspecified; F17.210 Nicotine dependence, cigarettes, uncomplicated; Z79.84 Long term (current) use of oral hypoglycemic drugs; Z79.899 Other long term (current) drug therapy; Z20.828 Contact with and (suspected) exposure to other viral communicable diseases
CPT/HCPCS: 36415; 71045; 76942; 80053; 84484; 85025; 87635; 93005; 93454; G0378; J1644; Q9967; U0003